=== PATIENT | female | born 2000 | race Caucasian/White ===

== ENCOUNTER 2021-10-10 10:34 | Emergency (ER) | payer OTHER ==
[~2021-10-10] VITALS: Ht 157.5 cm; Wt 52.7 kg
[2021-10-10 12:31] VITALS: BP 102/61
== END 2021-10-10 13:26 | disposition home or self-care (01) ==
LOC: EMS 10:34
DX: Z11.1 Encounter for screening for respiratory tuberculosis (principal)
CPT/HCPCS: 71045; 99283